=== PATIENT | male | born 1965 | race Caucasian/White ===

== ENCOUNTER 2019-12-03 18:41 | Emergency (ER) | payer BC, OTHER ==
[~2019-12-03] VITALS: Ht 187.9 cm; Wt 130.5 kg
[2019-12-03 19:00] VITALS: BP 146/86
[2019-12-03] MEDS ORDERED: FEXO1TAB40 PO (19:21)
--- NOTE | 2019-12-03 19:21 | ED Cough/URI ---
General Chief Complaint: Cough/Cold/Flu Symptoms Stated Complaint: COUGH History of Present Illness Date Seen by Provider: Dec 03, 2019 Time Seen by Provider: 19:08 Initial Comments This patient is a 54-year-old male that presents to the emergency room for sinus congestion and intermittent cough as being on for about 3 weeks. Patient states the symptoms seem to be improving. The patient is wanting to get checked out because he's having take xcyj-wds-qjlbvmc cough medicine to help with his cough. Patient denies fever does have a history seasonal allergies. Denies any significant congestion or discomfort. Patient denies pain with cough. States his only intermittent when it easily when he has a lot of clear mucus. Patient has not followed up with his doctor. Timing/Duration: week (3 weeks) Severity/Quality: mild Prior Episodes/Possible Cause: occasional episodes Associated Symptoms: cough, nasal congestion, nasal drainage Allergies and Home Medications Allergies Coded Allergies: No Known Drug Allergies (Unverified , 12/03/19) Patient Home Medication List Home Medication List Reviewed: Yes Review of Systems Review of Systems Constitutional: no symptoms reported EENTM: see HPI, no symptoms reported, nose congestion; No ear discharge, No hearing loss, No ear pain, No blurred vision, No double vision, No eye pain, No tearing, No vision loss, No dental problems, No hoarseness, No mouth pain, No mouth swelling, No epistaxis, No nose pain, No throat pain, No throat swelling, No other Respiratory: no symptoms reported, see HPI, cough; No dyspnea on exertion, No hemoptysis, No orthopnea, No phlegm, No short of breath, No stridor, No whee zing, No other Cardiovascular: No no symptoms reported, No see HPI, No chest pain, No edema, No Hx of Intervention, No palpitations, No syncope, No vascular heart diseas, No other Gastrointestinal: No RUQ, No LUQ, No RLQ, No LLQ, No no symptoms reported, No see HPI, No abdominal pain, No constipation, No diarrhea, No dysphagia, No hematemesis, No heartburn, No jaundice, No loss of appetite, No melena, No nausea, No vomiting, No other Genitourinary: No no symptoms reported, No see HPI, No decreased output, No discharge, No dysuria, No frequency, No hematuria, No hesitancy, No incontinence, No nocturia, No pain, No other Skin: No no symptoms reported, No see HPI, No change in color, No change in hair/nails, No dryness, No hx of skin cancer, No lesions, No lumps, No pruritus, No rash, No other All Other Systems Reviewed Negative Unless Noted: Yes Past Nnhivnp-Pdsfwd-Fqzxjb Hx Patient Social History Recent Foreign Travel: No Contact w/Someone Who Travel: No Physical Exam Capillary Refill : Height: '" Weight: lbs. oz. kg; BMI Method: General Appearance: WD/WN, no apparent distress Eyes: Right Eye Normal Inspection, Right Eye PERRL, Right Eye EOMI, Right Eye Abnormal EOM; Bilateral Eye Normal Inspection, Bilateral Eye PERRL, Bilateral Eye EOMI HEENT: PERRL/EOMI, normal ENT inspection, TMs normal, pharynx normal Neck: non-tender, full range of motion, supple, normal inspection, carotid bruit Respiratory: chest non-tender, lungs clear, normal breath sounds, no respiratory distress, no accessory muscle use Cardiovascular: normal peripheral pulses, regular rate, rhythm, no edema, no gallop, no JVD, no murmur Gastrointestinal: normal bowel sounds, non tender, soft, no organomegaly, no pulsatile mass Progress/Results/Core Measures Suspected Sepsis SIRS Temperature: Pulse: Respiratory Rate: Blood Pressure / Mean: Results/Orders Vital Signs/I&O Capillary Refill : Departure Impression Primary Impression: Cough Additional Impression: Postnasal drip Disposition: 01 HOME, SELF-CARE Condition: Stable Departure-Patient Inst. Decision time for Depature: 19:20 Referrals: EMILY CARVAJAL MD (PCP/Family) Primary Care Physician Patient Instructions: Cough, Adult (DC), Cough, Runny Nose, and the Common Cold (DC), Seasonal Allergies (DC) Add. Discharge Instructions: Coolmist humidifier. Tylenol Motrin as needed for fever or pain. Encourage by mouth fluids. Take prescription as prescribed. Follow up with PCP in 2-3 days. All discharge instructions reviewed with patient and/or family. Voiced und erstanding. Scripts Fexofenadine/Pseudoephedrine (Yani-D 12 Hour Tablet) 1 Each Tab.er.12h 1 EACH PO BID for 7 Days, #14 TAB 0 Refills Prov: THEA JAMES MD 12/03/19 THEA JAMES MD Dec 03, 2019 19:21
--- OUTSIDE RECORDS SUMMARY | 2019-12-04 02:10 | XMS REPORT | Continuity of Care Document ---
Author Organization Unknown Address Unknown Phone Unavailable Allergies Active Description Code Type Severity Reaction Onset Reported/Identified Relationship to Patient Clinical Status Yes No Known Drug Allergies [id number] Drug Allergy Unknown N/A 12/03/2019 Medications There is no data. Problems There is no data. Procedures There is no data. Results Test Result Range CMP - 02/14/19 08:54 GLUCOSE 108 mg/dL 65-99 UREA NITROGEN (BUN) 15 mg/dL 7-25 CREATININE 1.35 mg/dL 0.70-1.33 eGFR NON-AFR. KOSOVAN 59 mL/min/1.73m2 > OR = 60 eGFR 68 mL/min/1.73m2 > OR = 60 BUN/CREATININE RATIO 11 (calc) 6-22 SODIUM 140 mmol/L 135-146 POTASSIUM 4.4 mmol/L 3.5-5.3 CHLORIDE 102 mmol/L 98-110 CARBON DIOXIDE 30 mmol/L 20-32 CALCIUM 10.6 mg/dL 8.6-10.3 PROTEIN, TOTAL 7.1 g/dL 6.1-8.1 ALBUMIN 4.8 g/dL 3.6-5.1 GLOBULIN 2.3 g/dL (calc) 1.9-3.7 ALBUMIN/GLOBULIN RATIO 2.1 (calc) 1.0-2. 5 BILIRUBIN, TOTAL 0.5 mg/dL 0.2-1.2 ALKALINE PHOSPHATASE 126 U/L 40-115 AST 22 U/L 10-35 ALT 38 U/L 9-46 CBC w/MANUAL DIFF - 02/14/19 08:54 WHITE BLOOD CELL COUNT 8.5 Thousand/uL 3 .8-10.8 RED BLOOD CELL COUNT 5.31 Million/uL 4.2 0-5.80 HEMOGLOBIN 15.5 g/dL 13.2-17.1 HEMATOCRIT 48.2 % 38.5-50.0 MCV 90.8 fL 80.0-100.0 MCH 29.2 pg 27.0-33.0 MCHC 32.2 g/dL 32.0-36.0 RDW 13.2 % 11.0-15.0 PLATELET COUNT 214 Thousand/uL 140-400 MPV 12.2 fL 7.5-12.5 ABSOLUTE NEUTROPHILS 4769 cells/uL 1500- 7800 ABSOLUTE MONOCYTES 527 cells/uL 200-950 ABSOLUTE EOSINOPHILS 85 cells/uL 15-500 ABSOLUTE BASOPHILS 85 cells/uL 0-200 NEUTROPHILS 56.1 % NRG LYMPHOCYTES 35.7 % NRG MONOCYTES 6.2 % NRG EOSINOPHILS 1.0 % NRG BASOPHILS 1.0 % NRG ABSOLUTE LYMPHOCYTES 3035 cells/uL 850-3 900 CBC MORPHOLOGY NORMAL COMMENT(S) NRG CMP - 09/05/19 08:30 GLUCOSE 104 mg/dL 65-99 UREA NITROGEN (BUN) 28 mg/dL 7-25 CREATININE 1.67 mg/dL 0.70-1.33 eGFR NON-AFR. KOSOVAN 45 mL/min/1.73m2 > OR = 60 eGFR 52 mL/min/1.73m2 > OR = 60 BUN/CREATININE RATIO 17 (calc) 6-22 SODIUM 141 mmol/L 135-146 POTASSIUM 4.3 mmol/L 3.5-5.3 CHLORIDE 104 mmol/L 98-110 CARBON DIOXIDE 26 mmol/L 20-32 CALCIUM 10.4 mg/dL 8.6-10.3 PROTEIN, TOTAL 7.4 g/dL 6.1-8.1 ALBUMIN 5.0 g/dL 3.6-5.1 GLOBULIN 2.4 g/dL (calc) 1.9-3.7 ALBUMIN/GLOBULIN RATIO 2.1 (calc) 1.0-2. 5 BILIRUBIN, TOTAL 0.5 mg/dL 0.2-1.2 ALKALINE PHOSPHATASE 124 U/L 40-115 AST 23 U/L 10-35 ALT 30 U/L 9-46 Encounters ACCT No. Visit Date/Time Discharge Status Pt. Type Provider Facility Loc./Unit Complaint [id number] 02/16/2019 09:30:00 02/16/2019 23:59: 59 CLS Outpatient SELF, EMILY CHANG [facility] [id number] 09/05/2019 08:15:00 Document Registration [id number] 02/14/2019 09:00:00 Document Registration [id number] 12/03/2019 18:45:00 020 19:24:00 DIS Emergency ERIKA ZEPEDA, THEA W [facility] ER FS COUGH
== END 2019-12-03 19:24 | disposition home or self-care (01) ==
LOC: ER FS 18:45
DX: R05 Cough (principal); R09.82 Postnasal drip
CPT/HCPCS: 99282

== ENCOUNTER 2021-09-18 01:14 | Emergency (ER) | payer BC ==
[~2021-09-18] VITALS: Ht 187.9 cm; Wt 133.5 kg
[~2021-09-18 01:14] MED LIST: FEXO1TAB40 PO
[2021-09-18 01:18] VITALS: BP 146/82
[2021-09-18] MEDS ORDERED: NF-CIPDEC OT (01:28)
--- NOTE | 2021-09-18 01:28 | ED EENT ---
History of Present Illness General Stated Complaint: RIGHT PAIN History of Present Illness Date Seen by Provider: Sep 18, 2021 Time Seen by Provider: 01:23 Initial Comments 56-year-old male presents with right ear pain. Patient reports that it started this morning. That he is continues to hurt tonight and is having a hard time sleeping because of it. He denies any fevers or chills. Patient reports he is being treated for a viral upper respiratory infection. He was negative for Covid. He is currently taking Tessalon Perles to help with the cough. Denies any shortness of breath, nausea vomiting or other systemic complaints. Allergies and Home Medications Allergies Coded Allergies: No Known Drug Allergies (Unverified , 12/03/19) Patient Home Medication List Home Medication List Reviewed: Yes Fexofenadine/Pseudoephedrine (Yani-D 12 Hour Tablet) 1 Each Tab.er.12h, 1 EACH PO BID Prescribed by: THEA JAMES on 12/03/191920 Review of Systems Review of Systems Constitutional: No chills, No fever Eyes: No Symptoms Reported Ears: Pain Nose: congestion Mouth: no symptoms reported Throat: no symptoms reported Respiratory: cough Musculoskeletal: no symptoms reported Skin: no symptoms reported Neurological: No Symptoms Reported Hematologic/Lymphatic: No Symptoms Reported Past Syswseq-Fgeyqh-Jpvpqp Hx Past Medical History Surgeries: Yes (Hernia) Appendectomy Respiratory: No Cardiac: Yes High Cholesterol, Hypertension Neurological: No Genitourinary: No Gastrointestinal: No Musculoskeletal: No Endocrine: Yes Hypothyroidsim HEENT: No Cancer: No Psychosocial: No Integumentary: No Physical Exam Height, Weight, BMI Height: '" Weight: lbs. oz. kg; 36.00 BMI Method: General Appearance: WD/WN, no apparent distress Ears: right ear TM red, right ear TM bulging; left ear TM normal Cardiovascular: normal peripheral pulses, regular rate, rhythm Respiratory: lungs clear, normal breath sounds Gastrointestinal: non tender, soft Neurologic/Psychiatric: alert, normal mood/affect, oriented x 3 Skin: normal color, warm/dry Departure Impression Primary Impression: Otitis media Qualified Codes: H66.001 - Acute suppurative otitis media without spontaneous rupture of ear drum, right ear Disposition: 01 HOME, SELF-CARE Condition: Stable Departure-Patient Inst. Referrals: SELF,EMILY ZEPEDA (PCP/Family) Primary Care Physician Patient Instructions: Ear Infection ED Add. Discharge Instructions: Tylenol or ibuprofen as needed for ear pain Scripts Ciprofloxacin HCl/Dexameth (Ciprodex Otic Suspension) 7.5 Ml Soln 7.5 ML OT BID for 7 Days, #1 EA 4 drops in right ear twice a day for 7 days Prov: MANOLO AVILA DO 09/18/21 MANOLO AVILA DO Sep 18, 2021 01:28
== END 2021-09-18 01:29 | disposition home or self-care (01) ==
LOC: EDUNIT# 01:14 → ER FS 01:18
DX: H66.91 Otitis media, unspecified, right ear (principal); I10 Essential (primary) hypertension
CPT/HCPCS: 99282

== ENCOUNTER 2022-02-17 16:27 | Emergency (ER) | payer BC ==
[~2022-02-17] VITALS: Ht 187 cm; Wt 127.0 kg
[~2022-02-17 16:27] MED LIST changes: +NF-CIPDEC OT
[2022-02-17] MEDS ORDERED: morphine INJ 10 MG/ML 1ML (SYR OR VIAL) IM STA (16:29)
[2022-02-17] MEDS ORDERED: ONDANSETRON 4 MG (ZOFRAN) ORAL DISSOLVE TAB PO STA (16:29)
--- NOTE | 2022-02-17 17:01 | Diagnostic Imaging Report ---
EXAMINATION: Left knee radiographs, 2 views. COMPARISON: None. HISTORY: 56-year-old male, left knee pain after fall. FINDINGS: There are significant limitations of evaluation given difficulties positioning the patient. There is no large knee joint effusion. There is no identified acute fracture. There is no radiopaque foreign body. IMPRESSION: No identified acute bony abnormality of the left knee on very limited assessment. Dictated by: Dictated on workstation # [id number]
--- NOTE | 2022-02-17 17:38 | Diagnostic Imaging Report ---
EXAMINATION: Left femur 2 or more views. HISTORY: Leg injury. COMPARISON: None available. FINDINGS: Alignment is normal. No fracture is seen. Joint spaces are normal. IMPRESSION: 1. No fracture. Dictated by: Dictated on workstation # [id number]
[2022-02-17 18:08] VITALS: BP 132/74
--- NOTE | 2022-02-17 18:22 | ED Lower Extremity ---
General Chief Complaint: Lower Extremity Stated Complaint: FALL Nursing Triage Note: SEE ASSESSMENT NOTE Source: patient Exam Limitations: no limitations History of Present Illness Date Seen by Provider: Feb 17, 2022 Time Seen by Provider: 17:00 Initial Comments Patient is a 56-year-old male who presents with left knee injury after falling from standing. Patient fell on left knee and slid down a hill. He reports tenderness swelling with abrasion to his knee and pain over his lower quadricep. Also complains of abrasion to right knee. Arrives by EMS with leg in flexed position. No extremity weakness or loss sensation. No gross deformity. No other acute symptoms or complaints Onset: just prior to arrival Severity: moderate Pain/Injury Location: left leg Method of Injury: other Modifying Factors: Improves With Other Allergies and Home Medications Allergies Coded Allergies: No Known Drug Allergies (Unverified , 12/03/19) Patient Home Medication List Home Medication List Reviewed: Yes Ciprofloxacin HCl/Dexameth (Ciprodex Otic Suspension) 7.5 Ml Soln, 7.5 ML OT BID Prescribed by: MANOLO AVILA on 09/18/21 0128 Fexofenadine/Pseudoephedrine (Yani-D 12 Hour Tablet) 1 Each Tab.er.12h, 1 EACH PO BID Prescribed by: THEA JAMES on 12/03/19 1921 Review of Systems Constitutional: see HPI EENTM: see HPI Respiratory: see HPI Cardiovascular: see HPI Gastrointestinal: see HPI Genitourinary: see HPI Musculoskeletal: see HPI Skin: see HPI Psychiatric/Neurological: See HPI All Other Systems Reviewed Negative Unless Noted: Yes Past Ntlhxyo-Ocwrst-Hsxwpn Hx Patient Social History Tobacco Use?: Yes Smokeless Tobacco Frequency: Current Everyday User Substance use?: No Alcohol Use?: No Past Medical History Surgeries: Yes (Hernia) Appendectomy Respiratory: No Cardiac: Yes High Cholesterol, Hypertension Neurological: No Genitourinary: No Gastrointestinal: No Musculoskeletal: No Endocrine: Yes Hypothyroidsim HEENT: No Cancer: No Psychosocial: No Integumentary: No Physical Exam Vital Signs Vital Signs - First Documented 02/17/22 16:28 Temp 36.7 Pulse 73 Resp 16 B/P (MAP) 148/99 (115) Pulse Ox 98 O2 Delivery Room Air Capillary Refill : Less Than 3 Seconds Height, Weight, BMI Height: '" Weight: lbs. oz. kg; 36.00 BMI Method: General Appearance: WD/WN, mild distress Cardiovascular: normal peripheral pulses Respiratory: lungs clear Knees: left knee pain, left knee soft tissue tenderness, left knee swelling Progress/Results/Core Measures Results/Orders My Orders Orders - SRNIIVAS SABA DO Morphine Injection (Morphine Injection (02/17/22 16:29) Ondansetron Oral Dissolve Tab (Zofran (02/17/22 16:29) Knee 3 View Left (02/17/22 16:29) Femur 2 View Left (02/17/22 17:12) Knee Immobilizer (02/17/22 17:12) Vital Signs/I&O 02/17/22 02/17/22 16:28 18:08 Temp 36.7 36.7 Pulse 73 80 Resp 16 18 B/P (MAP) 148/99 (115) 132/74 Pulse Ox 98 98 O2 Delivery Room Air Room Air Blood Pressure Mean: 93 Departure Communication (Admissions) Left knee/fever: No obvious dislocation or fracture per radiology report. Patient with suspected patella dislocation with relocation in the ED on initial examination. Patient continues to have swelling suprapatellar region. Placed in a knee immobilizer with crutches. Recommendations are follow-up with PCP and orthopedic provider. Impression Primary Impression: Left knee injury Disposition: 01 HOME, SELF-CARE Condition: Stable Departure-Patient Inst. Decision time for Depature: 18:32 Referrals: EMILY CARVAJAL MD (PCP) Primary Care Physician SYLVIA HAMEED MD Patient Instructions: Knee Sprain ED Add. Discharge Instructions: You were evaluated the emergency department for left knee injury. Please apply ice to affected area, take ibuprofen 3 times daily and hydrocodone as needed for additional relief. Follow-up with your PCP and on-call orthopedic provider. Return to the ED if new or worsening symptoms. All discharge instructions reviewed with patient and/or family. Voiced understanding. Scripts Hydrocodone/Acetaminophen (Hydrocodone-Acetamin 5-325 mg) 5 Mg-325 Mg Tablet 1 TAB PO Q4H PRN for PAIN-MODERATE (5-7), #10 TAB Prov: SRINIVAS SABA DO 02/17/22 SRINIVAS SABA DO Feb 17, 2022 18:22
[2022-02-17] MEDS ORDERED: ACHD5005 PO (18:33)
== END 2022-02-17 18:14 | disposition home or self-care (01) ==
LOC: EDUNIT# 16:27 → ER FS 16:28
DX: S89.92XA Unspecified injury of left lower leg, initial encounter (principal); F17.220 Nicotine dependence, chewing tobacco, uncomplicated; W17.81XA Fall down embankment (hill), initial encounter; Y92.828 Other wilderness area as the place of occurrence of the external cause
CPT/HCPCS: 27560; 73552; 73562

== ENCOUNTER → 2022-02-18 | Emergency (ER) | payer BC ==
[~2022-02-18] MED LIST changes: +ACHD5005 PO; +ATOR40TA70 PO; +LEVO200C2 PO; +LISI20TA26 PO; +METF-397 PO
== END ==
LOC: EDUNIT# 14:53 → ER FS 14:56
DX: S89.92XA Unspecified injury of left lower leg, initial encounter (principal)

== ENCOUNTER → 2022-02-24 | Outpatient (CLI) | payer BC ==
[2022-02-24 11:15] LABS: BASOPHILS # (AUTO) 0.1 10^3/uL (0.0-0.1); BASOPHILS % (AUTO) 1 % (0-10); EOSINOPHILS # (AUTO) 0.2 10^3/uL (0.0-0.3); EOSINOPHILS % (AUTO) 2 % (0-10); HEMATOCRIT 47 % (40-54); HEMOGLOBIN 14.8 g/dL (13.3-17.7); LYMPHOCYTES # (AUTO) 1.7 10^3/uL (1.0-4.0); LYMPHOCYTES % (AUTO) 19 % (12-44); MEAN CORPUSCULAR HEMOGLOBIN 29 pg (25-34); MEAN CORPUSCULAR HGB CONC 32 g/dL (32-36); MEAN CORPUSCULAR VOLUME 91 fL (80-99); MEAN PLATELET VOLUME 11.2 fL (9.0-12.2); MONOCYTES # (AUTO) 0.5 10^3/uL (0.0-1.0); MONOCYTES % (AUTO) 6 % (0-12); NEUTROPHILS # (AUTO) 6.4 10^3/uL (1.8-7.8); NEUTROPHILS % (AUTO) 72 % (42-75); PLATELET COUNT 163 10^3/uL (130-400); WHITE BLOOD COUNT 8.9 10^3/uL (4.3-11.0)
[2022-02-24 11:36] LABS: ALBUMIN 4.3 GM/DL (3.2-4.5)
[2022-02-24 11:37] LABS: POTASSIUM 3.8 MMOL/L (3.6-5.0)
[2022-02-24 11:38] LABS: CALCIUM 9.8 MG/DL (8.5-10.1)
[2022-02-24 11:41] LABS: BILIRUBIN,TOTAL 0.5 MG/DL (0.1-1.0)
[2022-02-24 11:43] LABS: CREATININE SERUM 1.05 MG/DL (0.60-1.30)
== END ==
LOC: CARD 10:52
PROVIDERS: ATTEND Orthopaedic Surgery
DX: S76.112A Strain of left quadriceps muscle, fascia and tendon, initial encounter (principal)
CPT/HCPCS: 36415; 80053; 85025; 93005

== ENCOUNTER 2022-02-25 05:40 | Outpatient (CLI) | payer BC ==
[~2022-02-25] VITALS: Ht 187.9 cm; Wt 129.5 kg
[~2022-02-25 05:40] MED LIST changes: -ATOR40TA70 PO; -LEVO200C2 PO; -LISI20TA26 PO; -METF-397 PO
[2022-02-25] MEDS ORDERED: LISI20TA26 PO (10:27)
[2022-02-25] MEDS ORDERED: LEVO200C2 PO (10:27)
[2022-02-25] MEDS ORDERED: ATOR40TA70 PO (10:27)
[2022-02-25] MEDS ORDERED: METF-397 PO (10:27)
== END 2022-02-25 11:01 | disposition home or self-care (01) ==
LOC: PREOP 05:40
PROVIDERS: ATTEND Orthopaedic Surgery
DX: Z01.818 Encounter for other preprocedural examination (principal)

== ENCOUNTER 2022-03-01 07:31 | Day surgery (SDC) | payer BC ==
[2022-03-01] VITALS (10 sets, daily range): BP systolic 105–148; BP diastolic 75–97
[~2022-03-01] VITALS: Ht 187.9 cm; Wt 129.5 kg
[~2022-03-01 07:31] MED LIST changes: +ATOR40TA70 PO; +LEVO200C2 PO; +LISI20TA26 PO; +METF-397 PO
[2022-03-01] MEDS ORDERED: LIDOCAINE/EPI 2% 1:200,00 (XYLOCAINE) 20 ML VIAL ONE (07:54)
[2022-03-01] MEDS ORDERED: BUPIVACAINE 0.25% 10 ML (SENSORCAINE) VIAL ONE (07:54)
[2022-03-01] MEDS ORDERED: NEO/POLY/BAC (NEOSPORIN) OINT 15 GM TUBE ONE (07:54)
[2022-03-01] MEDS ORDERED: ceFAZolin 2 GM IV Premixed 50 ML IV ONE (08:00)
--- NOTE | 2022-03-01 08:24 | Progress Note-Pre Operative ---
Pre-Operative Progress Note H&P Reviewed The H&P was reviewed, patient examined and no changes noted. Date Seen by Provider: Mar 01, 2022 Time Seen by Provider: 08:20 Date H&P Reviewed: Mar 01, 2022 Time H&P Reviewed: 08:23 Pre-Operative Diagnosis: Traumatic quadriceps tendon tear left knee SYLVIA HAMEED MD Mar 01, 2022 08:24
[2022-03-01] MEDS: LACTATED RINGERS 1,000 ML IV PRN ×2 (08:41→10:10)
[2022-03-01] MEDS ORDERED: LIDOCAINE PF 2% 5 ML (XYLOCAINE) VIAL ONE (08:46)
[2022-03-01] MEDS ORDERED: proPOfol 200 MG/20 ML (DIPRIVAN) VIAL IV ONE (08:46)
[2022-03-01] MEDS ORDERED: SEVOFLURANE (ULTANE) 15 ML INHAL SOLN ONE ×2 (08:46→09:56)
[2022-03-01] MEDS ORDERED: ONDANSETRON 4 MG/2 ML (SDV) Z0FRAN ONE (08:46)
[2022-03-01] MEDS ORDERED: MIDAZOLAM 2 MG/2 ML (VERSED) VIAL ONE (08:46)
[2022-03-01] MEDS ORDERED: fentaNYL INJ 100 MCG/2 ML AMP ONE ×2 (08:46→10:47)
[2022-03-01] MEDS ORDERED: ROPIVACAINE 5MG/ML 30ML VIAL ONE (09:55)
[2022-03-01] MEDS ORDERED: D5 1/2 NS 1000 ML IV SOLUTION 1,000 ML IV SCH (10:30)
[2022-03-01] MEDS ORDERED: fentaNYL INJ 100 MCG/2 ML AMP IVP PRN ×2 (10:30)
--- NOTE | 2022-03-01 10:43 | Anesthesia-General Post-Op ---
General Patient Condition Mental Status/LOC: Same as Preop Cardiovascular: Satisfactory Nausea/Vomiting: Absent Respiratory: Satisfactory Pain: Controlled Complications: Absent Post Op Complications Complications None Follow Up Care/Instructions Patient Instructions None needed. Anesthesia/Patient Condition Patient Condition Patient is doing well, no complaints, stable vital signs, no apparent adverse anesthesia problems. No complications reported per nursing. NIKOLAI PEREYRA CRNA Mar 01, 2022 10:43
[2022-03-01] MEDS ORDERED: HYDROmorphone 2 MG/ML VIAL (DILAUDID) IV ONE (10:45)
[2022-03-01] MEDS ORDERED: morphine INJ 10 MG/ML 1ML (SYR OR VIAL) IVP ONE (10:45)
[2022-03-01] MEDS ORDERED: fentaNYL INJ 100 MCG/2 ML AMP IVP ONE (10:45)
[2022-03-01] MEDS ORDERED: ONDANSETRON 4 MG/2 ML (SDV) Z0FRAN IVP PRN (10:45)
[2022-03-01] MEDS ORDERED: PROMETHAZINE INJ 25 MG/ML (PHENERGAN) AMP IVP ONE (10:45)
[2022-03-01] MEDS ORDERED: HYDROmorphone 2 MG/ML VIAL (DILAUDID) ONE (10:47)
--- NOTE | 2022-03-01 10:50 | Operative Report - Ortho ---
Operative Report Surgeon (s)/Sap Portal Architect (s) Surgeon SYLVIA HAMEED MD Sap Portal Architect n/a Pre-Operative Diagnosis Traumatic quadriceps tendon tear left knee Post-Operative Diagnosis same Operative Report Date of Procedure: Mar 01, 2022 Name of Procedure Performed: Repair of traumatic quadriceps tendon tear left knee Description & Findings The patient was seen in preop and had no questions or concerns. His left leg was marked. The patient was then taken to the operating room and placed on the OR table. After administration of general anesthesia a tourniquet was placed on the left thigh. The patient was given 2 g Ancef IV preoperatively. The patient's left knee was shaved in preop. The left leg was then prepped and draped in usual sterile manner. Tourniquet was elevated to 275 mmHg after exsanguination of the leg with an Esmarch. Incision was made from the the superior pole of patella to the inferior pole of the patella. This was taken down through subtenons tissue. Bleeders were cauterized. Once through the subcutaneous tissue there was noted to be serous fluid were the quadriceps tendon tear was noted of the superior aspect patella. This was irrigated. Extension both proximally and distally was needed to expose the patella tendon as well as the quadriceps tendon. This point the quadriceps tendon stump was debrided back to normal tendon. The superior aspect of the patella was also debrided to bone and a trough was made into the bone. This point sutures were placed into the quadriceps tendon usiing a krockow Suture of #2 FiberWire. This is placed in the medial as well as the lateral aspect of the tendon. 3 drill holes were then placed longitudinally in the patella threading the medial limb of the suture of the lateral tendon and the lateral limb of the suture of the medial tendon through the central hole. The lateral limb of the lateral sutures placed through the lateral hole in the medial limb of the medial suture was placed through the medial hole. The leg was then placed in extension. The suture was then tied over the inferior pole of the patella through splits in the patella tendon. This approximated the distal aspect of the quadriceps tendon to the trough in the superior aspect of the patella. The knee was then flexed to about 45 degrees before tension was noted at the repair site. At this point the retinaculum both medial laterally was repaired with #1 Vicryl. NICU was again taken through range of motion to 45 degrees before tension was noted. This point the tourniquet was deflated after 40 minutes. Bleeders were cauterized. There is minimal bleeding. Wound was irrigated with normal saline. The subcutaneous tissue was closed with 2-0 Vicryl and the skin with skin clips. The wound was injected with 20 mL of a 50-50 mixture of 2% lidocaine with epinephrine and 0.25% Marcaine. Wound was then dressed with antibiotic ointment, Adaptic, 4 x 4's and ABDs. This was then wrapped with a Kerlix and a 6 inch Micky wrap. The left leg was placed in a knee immobilizer. Patient had good capillary refill to the foot and toes with good pulses. This point a femoral nerve block was inserted by anesthesia. The patient was then transferred to recovery room in good condition, he tolerated procedure well. The patient will stay overnight in observation for pain management antibiotics. We will also have physical therapy evaluate him and ambulate with a walker nonweightbearing on the left. Plan on discharge tomorrow. Blood loss50 mL Replacementnone Complicationsnone Drainsnone n/a Anesthesia Type General Estimated Blood Loss 50 mL. Replacementnone Drainsnone Packing none. Specimen(s) collected/removed None SYLVIA HAMEED MD Mar 01, 2022 10:50
[2022-03-01] MEDS ORDERED: PROMETHAZINE INJ 25 MG/ML (PHENERGAN) AMP ONE (11:21)
[2022-03-01] MEDS: HYDROcodone/APAP 5 MG/325 MG (LORTAB) TAB PO PRN ×3 (12:46→21:42)
--- NOTE | 2022-03-01 13:49 | Physical Therapy Evaluation ---
PT Evaluation-General Medical Diagnosis Admission Date March 01, 2022 Medical Diagnosis: left quadriceps tendon repair Onset Date: Feb 17, 2022 Therapy Diagnosis Therapy Diagnosis: generalized weakness/debility Precautions Precautions/Isolations: Fall Prevention, Standard Precautions Weight Bear Status Right Lower Extremity: Right Full Weight Bearing Left Lower Extremity: Left Non Weight Bearing Referral Physician: Lan Reason for Referral: Evaluation/Treatment Medical History Current History tripped and fell resulting in left quadriceps tendon tear Reviewed History: Yes Social History Home: Apartment Current Living Status: Alone Entry Into Home: Stairs Without Railing PT Steps Into Home: 1 Prior Prior Level of Function SCALE: Activities may be completed with or without assistive devices. 3-Lpcxiykqmp-lgajjwa completes the activity by him/herself with no assistance from a helper. 5-Set-up or Clean-up Assistance-helper sets up or cleans up; patient completes activity. [place] assists only prior to or following the activity. 4-Supervision or Touching Assistance-helper provides verbal cues and/or touching/steadying and/or contact guard assistance as patient completes activit y. Assistance may be provided throughout the activity or intermittently. 3-Partial/Moderate Assistance-helper does LESS THAN HALF the effort. [place] lifts, holds or supports trunk or limbs, but provides less than half the effort. 2-Substantial/Maximal Assistance-helper does MORE THAN HALF the effort. [place] lifts or holds trunk or limbs and provides more than half the effort. 6-Dfnmtmzfl-snkwqs does ALL the effort. Patient does none of the effort to complete the activity. Or, the assistance of 2 or more helpers is required for the patient to complete the activity. If activity was not attempted, code reason: 7-Patient Refused. 9-Not Applicable-not attempted and the patient did not perform the activity before the current illness, exacerbation or injury. 10-Not Attempted due to Environmental Limitations-(lack of equipment, weather restraints, etc.). 88-Not Attempted due to Medical Conditions or Safety Concerns. Bed Mobility: 6 Transfers (B,C,W/C): 6 Gait: 6 Stairs: 6 Indoor Mobility (Ambulation): Independent Stairs: Independent PT Evaluation-Current Subjective Patient agrees to PT. Pain Numeric Pain Scale: 10-Worst Possible Pain Location: Left Location Body Site: Thigh Pain Description: Acute Objective Patient Orientation: Normal For Age Attachments: IV ROM/Strength ROM Lower Extremities left LE immobilized/right LE WFL Strength Lower Extremities left LE NT/right LE 4-/5 grossly Integumentary/Posture Bowel Incontinence: No Bladder Incontinence: No Posture WFL Neuromuscular (Tone, Coordination, Reflexes) grossly intact Sensory Vision: Functional Hearing: Functional Transfers Roll Left to Right (QC): 3 Sit to Lying (QC): 3 Lying to Sitting/Side of Bed(Q: 3 Sit to Stand (QC): 3 Gait Does the Patient Walk?: No and Walking Goal IS indicated Mode of Locomotion: Walk Anticipated Mode of Locomotion: Walk Gait Assistive Device: FWW Comments/Gait Description able to "scoot" toward the HOB with use of FWW maintaining NWB left LE Balance Sitting Static: Normal Sitting Dynamic: Normal Standing Static: Fair Standing Dynamic: Poor Assessment/Needs Patient displaying dynamic standing balance difficulty with noted forward lean. Patient able to maintain NWB with "scooting", however, unable to hop at this time. Patient displays impaired mobility and noted weakness with all mobility. Rehab Potential: Fair PT [facility] Goals Bee Farmer Goals PT Bee Farmer Goals Time Frame: Mar 13, 2022 Roll Left & Right (QC): 6 Sit to Lying (QC): 6 Lying-Sitting on Side/Bed(QC): 6 Sit to Stand (QC): 6 Chair/Wlo-wz-Mvnim Xfer(QC): 6 Toilet Transfer (QC): 6 Walk 10 feet (QC): 4 Walk 50ft with 2 Turns (QC): 4 Walk 150 ft (QC): 4 1 Step (curb) (QC): 4 PT Plan Problem List Problem List: Activity Tolerance, Functional Strength, Safety, Balance, Gait, Transfer, Bed Mobility Treatment/Plan Treatment Plan: Continue Plan of Care Treatment Plan: Bed Mobility, Education, Functional Activity Shanae, Functional Strength, Gait, Safety, Therapeutic Exercise, Transfers Treatment Duration: Mar 13, 2022 Frequency: 11 times per week Estimated Hrs Per Day: .5 hour per day Patient and/or Family Agrees t: Yes Time/GCodes Time In: 1300 Time Out: 1318 Total Billed Treatment Time: 18 Total Billed Treatment 1 visit EVModC 18 min ESAU SORIA PT Mar 01, 2022 13:49
[2022-03-01] MEDS: metFORMIN 500 MG (GLUCOPHAGE) TAB PO SCH (17:06)
[2022-03-01] MEDS: ceFAZolin 2 GM IV Premixed 50 ML IV SCH ×2 (17:06→23:51)
[2022-03-02 00:14] VITALS: BP 146/80
[2022-03-02] MEDS: HYDROcodone/APAP 5 MG/325 MG (LORTAB) TAB PO PRN ×2 (02:14→10:23)
[2022-03-02 04:02] VITALS: BP 151/74
[2022-03-02] MEDS: metFORMIN 500 MG (GLUCOPHAGE) TAB PO SCH (06:19)
[2022-03-02 07:54] VITALS: BP 135/75
--- NOTE | 2022-03-02 08:36 | Physical Therapy Daily Note ---
PT Daily Note-Current Subjective Patient in bed pre tx, agrees to PT, has 5/10 pain in left leg. Appearance Patient in recliner post tx with nurse call, phone, tray, all needs met. Mental Status Patient Orientation: Person, Place, Situation Transfers SCALE: Activities may be completed with or without assistive devices. 5-Qkvqqylkzr-ywocuga completes the activity by him/herself with no assistance from a helper. 5-Set-up or Clean-up Assistance-helper sets up or cleans up; patient completes activity. [place] assists only prior to or following the activity. 4-Supervision or Touching Assistance-helper provides verbal cues and/or touching /steadying and/or contact guard assistance as patient completes activity. Assistance may be provided throughout the activity or intermittently. 3-Partial/Moderate Assistance-helper does LESS THAN HALF the effort. [place] lifts, holds or supports trunk or limbs, but provides less than half the effort. 2-Substantial/Maximal Assistance-helper does MORE THAN HALF the effort. [place] lifts or holds trunk or limbs and provides more than half the effort. 3-Jnnoomebs-frlwyg does ALL the effort. Patient does none of the effort to complete the activity. Or, the assistance of 2 or more helpers is required for the patient to complete the activity. If activity was not attempted, code reason: 7-Patient Refused. 9-Not Applicable-not attempted and the patient did not perform the activity before the current illness, exacerbation or injury. 10-Not Attempted due to Environmental Limitations-(lack of equipment, weather restraints, etc.). 88-Not Attempted due to Medical Conditions or Safety Concerns. Roll Left & Right (QC): 6 Lying to Sitting/Side of Bed(Q: 3 Sit to Stand (QC): 4 Chair/Xnb-vj-Odxdp Xfer(QC): 4 min assist to help with left leg during supine to sit Weight Bearing Right Lower Extremity: Right Full Weight Bearing Left Lower Extremity: Left Non Weight Bearing Gait Training Distance: 5' Gait Persons Needed: 1 Gait Assistive Device: FWW CGA, patient is compliant with NWB on left leg, he is not able to hop but scoots his right foot across the floor Exercises Supine Ex: Ankle pumps Supine Reps: 20 (done in recliner with legs up) Treatments bed mobility, ambulation Assessment Current Status: Fair Progress instructed patient to do ankle pumps throughout the day PT Snf Goals Snf Goals PT Snf Goals Time Frame: Mar 13, 2022 Roll Left & Right (QC): 6 Sit to Lying (QC): 6 Lying-Sitting on Side/Bed(QC): 6 Sit to Stand (QC): 6 Chair/Xfh-nz-Xaecb Xfer(QC): 6 Toilet Transfer (QC): 6 Walk 10 feet (QC): 4 Walk 50ft with 2 Turns (QC): 4 Walk 150 ft (QC): 4 1 Step (curb) (QC): 4 PT Plan Problem List Problem List: Activity Tolerance, Functional Strength, Safety, Balance, Gait, Transfer, Bed Mobility, ROM Treatment/Plan Treatment Plan: Continue Plan of Care Treatment Plan: Bed Mobility, Education, Functional Activity Shanae, Functional Strength, Gait, Safety, Therapeutic Exercise, Transfers Treatment Duration: Mar 13, 2022 Frequency: 11 times per week Estimated Hrs Per Day: .5 hour per day Patient and/or Family Agrees t: Yes Safety Risks/Education Patient Education: Gait Training, Transfer Techniques, Reviewed Precautions, Correct Positioning, Safety Issues Teaching Recipient: Patient Teaching Methods: Demonstration, Discussion Response to Teaching: Reinforcement Needed Time/GCodes Time In: 817 Time Out: 827 Total Billed Treatment Time: 10 Total Billed Treatment 1 visit FA DESEAN VARGHESE PT Mar 02, 2022 08:36
[2022-03-02] MEDS ORDERED: lisINopril 40 MG (PRINIVIL) TABLET PO SCH (09:00)
[2022-03-02] MEDS ORDERED: lisINopril 20 MG (PRINIVIL) TABLET PO SCH (09:00)
[2022-03-02] MEDS ORDERED: LEVOTHYROXINE 100 MCG (LEVOTHROID) TAB PO NR (09:00)
--- NOTE | 2022-03-02 09:46 | Discharge Inst-Simple/Standard ---
Discharge Inst-Standard Reconcile Patient Problems Problems Reviewed?: Yes Discharge Medications New, Converted or Re-Newed RX: RX Given to Pt/Family Patient Instructions/Follow Up Plan of Care/Instructions/FU: Continue walker ambulation nonweightbearing on the left Continue home meds and hydrocodone Has follow-up appointment tomorrow 03/03/2022 Activity as Tolerated: No Discharge Diet: No Restrictions SYLVIA HAMEED MD Mar 02, 2022 09:46
--- NOTE | 2022-03-02 09:50 | Progress Note - Ortho ---
Progress Note Subjective Date of Exam 03/02/22 Chief Complaint POD#1 Repair of traumatic quadriceps tear left knee HPI/Events since last exam Mr Buffy is 1 day postop repair of quadriceps tendon tear left knee. He is having some pain but he states it is 5 or 6. It is controlled with pain medication. He has been up with therapy nonweightbearing with a walker and he feels he is ready for discharge. Review of Systems Reviewed and no additions or changes Allergies: Coded Allergies: No Known Drug Allergies (Unverified , 12/03/19) Home Meds Active Scripts Hydrocodone/Acetaminophen (Hydrocodone-Acetamin 5-325 mg) 5 Mg-325 Mg Tablet, 1 TAB PO Q4H PRN for PAIN-MODERATE (5-7), #10 TAB Prov:SRINIVAS SABA DO 02/17/22 Reported Medications Atorvastatin Calcium (Atorvastatin Calcium) 40 Mg Tablet, 40 MG PO DAILY, TAB 02/25/22 Metformin HCl (Metformin HCl) 500 Mg Tablet, 500 MG PO BID, TAB 02/25/22 Levothyroxine Sodium (Levothyroxine) 200 Mcg Capsule, 200 MCG PO DAILY, CAP 02/25/22 Lisinopril (Lisinopril) 20 Mg Tablet, 20 MG PO DAILY, TAB 02/25/22 Discontinued Scripts Ciprofloxacin HCl/Dexameth (Ciprodex Otic Suspension) 7.5 Ml Soln, 7.5 ML OT BID for 7 Days, #1 EA 4 drops in right ear twice a day for 7 days Prov:MANOLO AVILA DO 09/18/21 Fexofenadine/Pseudoephedrine (Yani-D 12 Hour Tablet) 1 Each Tab.er.12h, 1 EACH PO BID for 7 Days, #14 TAB 0 Refills Prov:THEA JAMES MD 12/03/19 Objective Exam Constitutional: [] HEENT: [] Neck: [] Cardiovascular: [] Respiratory: [] Gastrointestinal: [] Genitourinary: [] Skin: [] Back/Spine: [] Extremities: [Dressing is intact. Left leg in an immobilizer. He is able to dorsiflex plantarflex foot and ankle without any weakness or pain. Normal sensation of the foot and toes with good cap refill and good pulses] Neurologic: [] Psychiatric: [] Hematologic/lymphatic/immunologic: [] Vital Signs Vital Signs Date Time Temp Pulse Resp B/P (MAP) Pulse Ox O2 Delivery O2 Flow Rate FiO2 03/02/22 07:54 36.8 84 18 135/75 (95) 94 Room Air 03/02/22 04:02 36.9 83 18 151/74 (99) 95 Room Air 03/02/22 00:14 37.1 88 18 146/80 (102) 93 Room Air 03/01/22 21:00 Room Air 03/01/22 20:00 37.8 91 16 139/81 (100) 93 Room Air 03/01/22 16:00 37.4 92 18 136/80 (98) 93 Room Air 03/01/22 11:35 Room Air 03/01/22 11:35 36.2 20 148/94 (112) 95 Room Air 03/01/22 11:30 Room Air 03/01/22 11:20 20 142/88 (106) 95 OxyMask 3 03/01/22 11:15 OxyMask 3 03/01/22 11:10 20 127/87 (100) 95 OxyMask 4 03/01/22 11:00 20 133/97 (109) 95 OxyMask 4 03/01/22 11:00 OxyMask 4 03/01/22 10:50 20 125/80 (95) 98 OxyMask 5 03/01/22 10:45 OxyMask 8 03/01/22 10:40 20 105/75 (85) 100 OxyMask 8 03/01/22 10:31 36.2 20 115/75 (88) 100 OxyMask 8 03/01/22 10:31 OxyMask 8 I & O 03/02/22 07:00 Intake Total 2160 ml Output Total 875 ml Balance 1285 ml Assessment and Plan Assessment Doing well first day postop Problem List Traumatic quadriceps tear left knee Plan Discharge. Continue home meds. Continue hydrocodone 5/325 1-2 every 4 hours as needed pain. Continue walker ambulation nonweightbearing on the left. Continue knee immobilizer. No need for dressing change. Has follow-up appointment for tomorrow for dressing change. Final Diagonsis Traumatic quadriceps tear left knee Level of the visit: Level 3 SYLVIA HAMEED MD Mar 02, 2022 09:50
[2022-03-02] MEDS: ceFAZolin 2 GM IV Premixed 50 ML IV SCH (10:25)
[2022-03-02 11:19] VITALS: BP 135/75
== END 2022-03-02 11:20 | disposition home or self-care (01) ==
LOC: SDC 07:31 → 4TH 11:42 → SDC 03-02 11:20
PROVIDERS: ATTEND Orthopaedic Surgery
DX: S76.102A Unspecified injury of left quadriceps muscle, fascia and tendon, initial encounter (principal); E66.9 Obesity, unspecified; Z68.37 Body mass index [BMI] 37.0-37.9, adult; F17.220 Nicotine dependence, chewing tobacco, uncomplicated
CPT/HCPCS: 82947; 87081

== ENCOUNTER → 2022-03-03 | Outpatient (CLI) | payer BC | LOC: ORTHO 09:30 | PROVIDERS: ATTEND Orthopaedic Surgery | DX: Z47.89 Encounter for other orthopedic aftercare (principal); Z98.890 Other specified postprocedural states ==

== ENCOUNTER → 2022-03-29 | Outpatient (CLI) | payer BC | LOC: ORTHO 09:20 | PROVIDERS: ATTEND Orthopaedic Surgery | DX: S76.119A Strain of unspecified quadriceps muscle, fascia and tendon, initial encounter (principal); X58.XXXA Exposure to other specified factors, initial encounter ==

== ENCOUNTER 2022-04-07 10:46 | Emergency (ER) | payer BC ==
[~2022-04-07] VITALS: Ht 185.5 cm; Wt 127.0 kg
[2022-04-07 10:50] VITALS: BP 144/77
--- NOTE | 2022-04-07 10:59 | ED Lower Extremity ---
General Chief Complaint: Trauma-Non Activation Stated Complaint: FALL; LT KNEE INJ History of Present Illness Date Seen by Provider: Apr 07, 2022 Time Seen by Provider: 10:55 Initial Comments 57-year-old male presents with pain to the left knee. Patient reports that on 03/01/2022 he had a meniscus repair by Dr. Montenegro. He was supposed to be nonweightbearing. That he was walking this morning and started to fall. That he put all his weight on his left knee which she is not supposed to do. Since then he has had increased pain and some mild increase in the swelling. Patient is wearing a brace that is currently set at 35 degrees. He denies any other injuries from the fall. Fall happened approximate 1 hour ago. He has not notified Dr. Montenegro of the fall and injury. Allergies and Home Medications Allergies Coded Allergies: No Known Drug Allergies (Unverified , 12/03/19) Patient Home Medication List Home Medication List Reviewed: Yes Atorvastatin Calcium (Atorvastatin Calcium) 40 Mg Tablet, 40 MG PO DAILY, (Reported) Entered as Reported by: TREMAYNE FLEMING on 02/25/22 1027 Hydrocodone/Acetaminophen (Hydrocodone-Acetamin 5-325 mg) 5 Mg-325 Mg Tablet, 1 TAB PO Q4H PRN for PAIN-MODERATE (5-7) Prescribed by: SRINIVAS SABA on 02/17/22 1834 Levothyroxine Sodium (Levothyroxine) 200 Mcg Capsule, 200 MCG PO DAILY, (Reported) Entered as Reported by: TREMAYNE FLEMING on 02/25/22 1027 Lisinopril (Lisinopril) 20 Mg Tablet, 20 MG PO DAILY, (Reported) Entered as Reported by: TREMAYNE FLEMING on 02/25/22 1027 Metformin HCl (Metformin HCl) 500 Mg Tablet, 500 MG PO BID, (Reported) Entered as Reported by: TREMAYNE FLEMING on 02/25/22 1027 Review of Systems Constitutional: no symptoms reported EENTM: no symptoms reported Respiratory: no symptoms reported Cardiovascular: no symptoms reported Gastrointestinal: no symptoms reported Genitourinary: no symptoms reported Musculoskeletal: see HPI Skin: see HPI Past Dlyespo-Jyqvja-Aohejm Hx Immunizations Up To Date First/Initial COVID19 Vaccinat: 10/23/2020 Second COVID19 Vaccination Yonis: 11/21/20 Third COVID19 Vaccination Date: 07/24/21 Seasonal Allergies Seasonal Allergies: No Past Medical History Surgeries: Yes (Hernia) Appendectomy Respiratory: No Currently Using CPAP: No Currently Using BIPAP: No Cardiac: Yes High Cholesterol, Hypertension Neurological: No Genitourinary: No Gastrointestinal: Yes (HERNIA TESTES) Musculoskeletal: Yes (LEFT WRIST FX) Fractures Endocrine: Yes Hypothyroidsim, Diabetes, Non-Insulin dep HEENT: No Cancer: No Psychosocial: No Integumentary: No Blood Disorders: No Physical Exam Vital Signs Vital Signs - First Documented 04/07/22 10:50 Temp 35.5 Pulse 84 Resp 18 B/P (MAP) 144/77 (99) Pulse Ox 97 O2 Delivery Room Air Capillary Refill : Height, Weight, BMI Height: '" Weight: lbs. oz. kg; 36.67 BMI Method: General Appearance: no apparent distress, obese HEENT: PERRL/EOMI Neck: full range of motion, supple Cardiovascular: normal peripheral pulses, regular rate, rhythm Respiratory: lungs clear, normal breath sounds Gastrointestinal: non tender, soft Hips: bilateral hip non-tender Knees: right knee non-tender, right knee normal inspection, right knee normal range of motion; left knee swelling, left knee other (Incision clean dry and intact. There is some minor tenderness to palpation, swelling. Patient is wearing a knee immobilizer/brace) Neurologic/Psychiatric: alert, normal mood/affect, oriented x 3 Skin: other (Left knee with surgical incision with Steri-Strips in place, clean dry and intact. No signs of infection.) Progress/Results/Core Measures Results/Orders My Orders Orders - MANOLO AVILA DO Knee 2 View Left (04/07/22 10:59) Vital Signs/I&O 04/07/22 10:50 Temp 35.5 Pulse 84 Resp 18 B/P (MAP) 144/77 (99) Pulse Ox 97 O2 Delivery Room Air Progress Progress Note : Progress Note Discussed with Dr. Montenegro. Patient should continue to wear his brace, be nonweightbearing, knee elevated when not ambulating and have him keep his appointment for next Tuesday as already scheduled. Patient was stable and discharged Diagnostic Imaging Diagonstic Imaging: Xray Plain Films/CT/US/NM/MRI: knee Comments Date of Exam:04/07/22 KNEE 2 VIEW LEFT HISTORY: Left knee injury, postop pain. COMPARISON: 02/17/2022. TECHNIQUE: Two views of the left knee. FINDINGS: No acute fracture is seen in the left knee. Alignment is normal and joint spaces are preserved. There is a large left knee joint effusion. Small calcifications and significant edema are seen about the distal quadriceps tendon. IMPRESSION: Large left knee joint effusion with suprapatellar edema and calcifications. A quadriceps tendon tear is not excluded. Recommend correlation with clinical findings and, if indicated, a nonemergent ultrasound could be considered. Reviewed: Reviewed by Me, Reviewed/Discussed Departure Impression Primary Impression: Left knee injury Qualified Codes: S89.92XA - Unspecified injury of left lower leg, initial encounter Disposition: HOME, SELF-CARE Condition: Stable Departure-Patient Inst. Referrals: SELF,EMILY ZEPEDA (PCP) Primary Care Physician Patient Instructions: Internal Derangement of the Knee (DC) Add. Discharge Instructions: Please continue to wear your brace until you follow-up with Dr. Chiang next Tuesday When you are not ambulating please elevate your leg All discharge instructions reviewed with patient and/or family. Voiced understanding. MANOLO AVILA DO Apr 07, 2022 10:59
--- NOTE | 2022-04-07 11:40 | Diagnostic Imaging Report ---
HISTORY: Left knee injury, postop pain. COMPARISON: 02/17/2022. TECHNIQUE: Two views of the left knee. FINDINGS: No acute fracture is seen in the left knee. Alignment is normal and joint spaces are preserved. There is a large left knee joint effusion. Small calcifications and significant edema are seen about the distal quadriceps tendon. IMPRESSION: Large left knee joint effusion with suprapatellar edema and calcifications. A quadriceps tendon tear is not excluded. Recommend correlation with clinical findings and, if indicated, a nonemergent ultrasound could be considered. Dictated by: Dictated on workstation # [id number]
== END 2022-04-07 12:16 | disposition home or self-care (01) ==
LOC: EDUNIT# 10:46 → ER FS 10:48
DX: S89.92XA Unspecified injury of left lower leg, initial encounter (principal); W19.XXXA Unspecified fall, initial encounter
CPT/HCPCS: 73560

== ENCOUNTER → 2022-04-12 | Outpatient (CLI) | payer BC | LOC: ORTHO 09:18 | PROVIDERS: ATTEND Orthopaedic Surgery | DX: S76.119A Strain of unspecified quadriceps muscle, fascia and tendon, initial encounter (principal); X58.XXXA Exposure to other specified factors, initial encounter ==

== ENCOUNTER → 2022-04-20 | Outpatient (CLI) | payer BC ==
--- NOTE | 2022-04-20 10:02 | Diagnostic Imaging Report ---
MRI LT LOWER EXT JOINT W/O TECHNIQUE: Multiplanar, multisequence MR imaging of the left knee was performed without contrast. COMPARISON: None available. INDICATION: Knee pain after fall FINDINGS: MENISCI Medial meniscus: Intact. Lateral meniscus: Intact. LIGAMENTS ACL: Intact. PCL: Intact. MCL: Intact. LCL: The lateral collateral ligamentous complex is intact. EXTENSOR MECHANISM Complete tear of the quadriceps at its distal insertion on the patella. There is approximately 2 cm gap between the retracted stump in the patellar. The tendon gap is filled with fluid and/or hemorrhage. Patellar tendon remains intact. CARTILAGE Medial compartment: Partial thickness chondral loss without sites of full-thickness articular cartilage loss. Lateral compartment: Diffuse chondral where without full-thickness articular cartilage loss. Patellofemoral compartment: Broad regions of partial-thickness articular cartilage loss. BONE 3 linear vague T2 hyperintense lines extending through the patella which may be due to prior quadriceps repair versus artifact. SOFT TISSUE Small knee joint effusion. No Romero's cyst. IMPRESSION: 1. Complete tear of the distal quadriceps has a stump retracted approximately 2 cm. 3 linear hyperintensities within the patella may be due to anchors size from prior quadriceps repair and correlation with surgical history is advised. 2. No meniscal tear. 3. Mild degenerative arthritis with partial-thickness chondral loss throughout all 3 compartments, most advanced in the patella. Dictated by: Dictated on workstation # [id number]
== END ==
LOC: RAD 08:45
PROVIDERS: ATTEND Orthopaedic Surgery
DX: S76.112A Strain of left quadriceps muscle, fascia and tendon, initial encounter (principal); M17.12 Unilateral primary osteoarthritis, left knee; W19.XXXA Unspecified fall, initial encounter
CPT/HCPCS: 73721